=== PATIENT | female | born 1960 | race American Indian/Alaskan Native ===

== ENCOUNTER 2018-04-10 15:58 | Emergency (ER) | payer OTHER ==
--- NOTE | 2018-04-10 17:36 | Emergency Department Report ---
Eye Injury/Foreign Body - HPI Duration: 1 week Eye Location: Left Severity: Mild Tetanus Status: Unknown Eye Symptoms: Eye Pain: No, Blurred Vision: No, Eye Redness: No, Grinding/Hammering Metal: No, Used Eye Protection: No, Contact Lens Use: No, Recalls Injury: No, Photophobia: No Other History: This is a 57-year-old female who presents with visual changes for one week. The patient reports seen in a spider web over the left eye. Denies wearing glasses or contacts. Patient reports the vision is the same size and is spider web lines over left eye. She denies pain, discharge, swelling. ED Review of Systems ROS: Stated complaint: RT EYE PAIN Other details as noted in HPI Constitutional: denies: chills, fever Eyes: vision change (left eye) Respiratory: denies: cough, shortness of breath, wheezing Cardiovascular: denies: chest pain, palpitations Gastrointestinal: denies: abdominal pain, nausea, diarrhea Neurological: denies: headache, weakness, paresthesias Psychiatric: denies: anxiety, depression ED Past Medical Hx - Past Medical History Previous Medical History?: No - Surgical History Past Surgical History?: No - Social History Smoking Status: Never Smoker Substance Use Type: None Eye Injury Exam - Exam General: Vital signs noted. No distress. Alert and acting appropriately. - Visual Acuity Left Vision Acuity Degree: 20/20 Eye Exam: Both EOMI, Neither Injection, Neither Chemosis, Neither Abnormal Pupil, Neither Eye Foreign Body, Neither Lid Foreign Body, Neither Mucous Discharge, Neither Purulent Discharge, Neither Fluorescein Uptake, Neither Fluorescein Uptake (slit lamp), Neither Cell/Flare (slit lamp), Neither Corneal Edema, Neither Photophobia Bilateral Vision Acuity Degree: 20/40 ED Course Vital Signs 04/10/18 16:02 Temperature 98.6 F Pulse Rate 66 Respiratory 16 Rate Blood Pressure 131/56 O2 Sat by Pulse 100 Oximetry ED Medical Decision Making - Medical Decision Making Patient was examined by me. Vitals are normal and patient is in no acute distress. Obtained a facial acuity 20/20 left, 20/40 bilaterally. Patient denies pain or discharge from left eye. Findings consistent with age-related macular degeneration. Referral to ophthalmology for continued care. Patient discharged home in stable condition. Critical care attestation.: If time is entered above; I have spent that time in minutes in the direct care of this critically ill patient, excluding procedure time. ED Disposition Clinical Impression: Left eye complaint Macular degeneration of left eye Qualifiers: Macular degeneration type: unspecified type Qualified Code(s): H35.30 - Unspecified macular degeneration Disposition: - TO HOME OR SELFCARE Is pt being admited?: No Does the pt Need Aspirin: No Condition: Stable Instructions: Age-Related Macular Degeneration: (ED) Additional Instructions: Follow-up with the electric golf cart repairer from referral list. Referrals: MERLENE ZENG MD [Primary Care Provider] - 3-5 Days EM ZAYAS MD [Staff Physician] - 3-5 Days [facility] [Provider Group] - 3-5 Days [facility], [facility] [Provider Group] - 3-5 Days Time of Disposition: 17:39
== END 2018-04-10 18:00 | disposition home or self-care (01) ==
LOC: ED 15:58
DX: H35.30 Unspecified macular degeneration (principal)